=== PATIENT | male | born 1995 | race Caucasian/White ===

== ENCOUNTER 2024-08-16 08:06 | Emergency (ER) | payer MEDICAID ==
[~2024-08-16] VITALS: Ht 170.2 cm; Wt 84.1 kg
[2024-08-16] MEDS: diazepam 5mg tablet PO ONE (08:38)
[2024-08-16] MEDS: ketorolac trometh 30MG/ML vial 30 MG/ML VIAL IM ONE (08:38)
[2024-08-16 08:56] VITALS: BP 138/79; PULSE 72; RESP 16; TEMP 98; O2SAT 98
== END 2024-08-16 09:06 | disposition home or self-care (01) ==
LOC: ER 08:07
DX: G89.29 Other chronic pain (principal); M54.6 Pain in thoracic spine; M43.6 Torticollis; Z88.5 Allergy status to narcotic agent
CPT/HCPCS: 96372; 99283; J1885; L0172